=== PATIENT | female | born 1935 | race Two or more races ===

== ENCOUNTER 2018-08-31 12:06 | Inpatient (IN) | payer OTHER ==
[~2018-08-31] VITALS: Ht 152.4 cm; Wt 106.1 kg
[2018-08-31] MEDS ORDERED: TENORMIN25 MG (13:17)
[2018-08-31] MEDS ORDERED: NORVASC2.5 MG (13:17)
== END 2018-09-04 17:46 | disposition designated cancer center or children's hospital (05) | DRG 470 ==
LOC: ER 12:06 → SEC-K 17:39 → O/R 17:39 → SURG 09-01 18:40
PROC: 0SRR01Z Replacement of Right Hip Joint, Femoral Surface with Metal Synthetic Substitute, Open Approach (ICD-10-PCS; principal; 2018-08-31)
PROC: 0QR40JZ Replacement of Right Acetabulum with Synthetic Substitute, Open Approach (ICD-10-PCS; 2018-08-31)
PROC: 0MTL0ZZ Resection of Right Hip Bursa and Ligament, Open Approach (ICD-10-PCS; 2018-08-31)
PROC: 0LX Tendons, Transfer (ICD-10-PCS; 2018-08-31)
PROC: 4A033R1 Measurement of Arterial Saturation, Peripheral, Percutaneous Approach (ICD-10-PCS; 2018-08-31)
PROC: BB24ZZZ Computerized Tomography (CT Scan) of Bilateral Lungs (ICD-10-PCS; 2018-09-01)
PROC: BB24Y0Z Computerized Tomography (CT Scan) of Bilateral Lungs using Other Contrast, Unenhanced and Enhanced (ICD-10-PCS; 2018-09-01)
PROC: 3E0F7GC Introduction of Other Therapeutic Substance into Respiratory Tract, Via Natural or Artificial Opening (ICD-10-PCS; 2018-09-01)
DX: S72.091A Other fracture of head and neck of right femur, initial encounter for closed fracture (principal); J95.89 Other postprocedural complications and disorders of respiratory system, not elsewhere classified; J98.11 Atelectasis; R09.02 Hypoxemia; W18.09XA Striking against other object with subsequent fall, initial encounter; Y93.89 Activity, other specified; Y92.092 Bedroom in other non-institutional residence as the place of occurrence of the external cause; Y99.8 Other external cause status

== ENCOUNTER 2018-11-01 09:36 | Outpatient (CLI) | payer OTHER ==
[~2018-11-01 09:36] MED LIST: NORVASC2.5 MG; TENORMIN25 MG
== END 2018-11-01 09:50 | disposition home or self-care (01) ==
LOC: LAB 09:36
DX: E55.9 Vitamin D deficiency, unspecified (principal); M85.89 Other specified disorders of bone density and structure, multiple sites; E88.89 Other specified metabolic disorders; M81.8 Other osteoporosis without current pathological fracture; E83.42 Hypomagnesemia; E56.1 Deficiency of vitamin K

== ENCOUNTER → 2018-11-06 | Outpatient (CLI) | payer OTHER | END | disposition home or self-care (01) | LOC: NUCLEAR 12:50 | DX: M81.0 Age-related osteoporosis without current pathological fracture (principal) ==

== ENCOUNTER 2018-12-19 07:53 | Outpatient (CLI) | payer OTHER | END 2018-12-19 07:56 | disposition home or self-care (01) | LOC: RAD 07:53 | DX: Z96.641 Presence of right artificial hip joint (principal) ==

== ENCOUNTER 2020-06-03 08:45 | Outpatient (CLI) | payer OTHER | END 2020-06-03 08:52 | disposition home or self-care (01) | LOC: RAD 08:45 | PROVIDERS: ATTEND Physical Medicine & Rehabilitation | DX: M25.551 Pain in right hip (principal); M25.552 Pain in left hip; M54.5 Low back pain ==

== ENCOUNTER 2020-12-29 18:59 | Inpatient (IN) | payer OTHER ==
[~2020-12-29] VITALS: Ht 149.9 cm; Wt 54.4 kg
[2020-12-29] MEDS ORDERED: DICLOFENAC SODI50 MG PO (19:10)
[2020-12-29] MEDS ORDERED: GABAPENTIN100 M2 PO (19:10)
[2020-12-29] MEDS ORDERED: LOSARTAN POTAS100 MG PO (19:10)
[2020-12-29] MEDS ORDERED: SERTRALINE HCL25 MG PO (19:10)
[2020-12-29] MEDS ORDERED: SIMVASTATIN40 MG PO (19:11)
[2020-12-29] MEDS ORDERED: ATENOLOL50 MG PO (19:11)
[2020-12-29] MEDS ORDERED: ST. JOSEPH ASPI81 M2 PO (19:11)
[2020-12-29] MEDS ORDERED: HYDROCHLOROTH12.5 MG PO (19:12)
[2021-01-17] MEDS ORDERED: TAMS0.4C PO (12:51)
[2021-01-17] MEDS ORDERED: ATENOLOL50 MG PO (12:51)
[2021-01-17] MEDS ORDERED: INTESTINEX680 M1 PO (12:51)
[2021-01-17] MEDS ORDERED: FLUCONAZOLE100 MG PO (12:51)
[2021-01-17] MEDS ORDERED: LOSARTAN POTAS100 MG PO (12:51)
== END 2021-01-17 20:42 | disposition home or self-care (01) | DRG 392 ==
LOC: ER 18:59 → SEC-K 12-30 12:52 → MEDI 12-30 12:52
PROVIDERS: Surgery; ADMIT Internal Medicine; ATTEND Internal Medicine
PROC: 02HV33Z Insertion of Infusion Device into Superior Vena Cava, Percutaneous Approach (ICD-10-PCS; 2021-01-01)
PROC: 0DJD8ZZ Inspection of Lower Intestinal Tract, Via Natural or Artificial Opening Endoscopic (ICD-10-PCS; principal; 2021-01-03 09:15)
DX: K57.32 Diverticulitis of large intestine without perforation or abscess without bleeding (principal); N39.0 Urinary tract infection, site not specified; J98.11 Atelectasis; R09.02 Hypoxemia; R33.8 Other retention of urine; D64.9 Anemia, unspecified; I10 Essential (primary) hypertension; E78.5 Hyperlipidemia, unspecified; Z20.822 Contact with and (suspected) exposure to COVID-19

== ENCOUNTER 2022-09-14 12:58 | Inpatient (IN) | payer OTHER ==
[~2022-09-14] VITALS: Ht 162.6 cm; Wt 72.6 kg
[~2022-09-14 12:58] MED LIST changes: +ATENOLOL50 MG PO; +DICLOFENAC SODI50 MG PO; +FLUCONAZOLE100 MG PO; +GABAPENTIN100 M2 PO; +HYDROCHLOROTH12.5 MG PO; +INTESTINEX680 M1 PO; +LOSARTAN POTAS100 MG PO; +SERTRALINE HCL25 MG PO; +SIMVASTATIN40 MG PO; +ST. JOSEPH ASPI81 M2 PO; +TAMS0.4C PO
--- NOTE | 2022-09-14 13:13 | NUR ---
PTE ALERTA,ESTABLE Y ORIENTADA.ESTA REFIERE QUE HOY EN LA MANANA COMENZO CON LA DIFICULTAD RESPIRATORIA
--- NOTE | 2022-09-14 14:51 | NUR ---
PTE ALERTA,ESTABLE Y ORIENTADA.SE EDUCA SOBRE EL TRATAMIENTO QUE RECIBIRA EN EL HOSPTIAL Y ESTA REFIERE ENTENDER
--- NOTE | 2022-09-14 15:14 | NUR ---
AL MOMENTO DE RECIBIR TURNO PACIENTE SE ENCUENTRA REALIZANDOSE UN CT DE [employer]. PACIENTE CON CANULA NASAL BAJANDO A 4L. AL MOMENTO CANALIZACION PATENTE Y ANDRE DE EDEMA. 0.9 NSS BAJANDO A 100ML/HR. PACIENTE PENDIENTE PARA REALIZARSE PLACA.
--- NOTE | 2022-09-14 18:49 | NUR ---
FEMINA DESORIENTADA CONECTADA A MONITOR CARDIACCO Y OXIMETRIA DE PULSO. IV FLUIDS 0.9% NSS @ A 100 ML/HR PATENTES LIBRES DE EDEMA, ERITEMA Y SIGNOS DE INFECCION. SE MANTIENE PTE BAJO OBSERVACION POR CAMBIOS SIGNIFICATIVOS.
== END 2022-09-22 07:07 | disposition expired ==
LOC: ER 12:58 → MEDI 20:06 → ICU-2 20:06 → SURH 09-16 13:01
PROVIDERS: ADMIT Internal Medicine; ATTEND Internal Medicine
PROC: 4A12X4Z Monitoring of Cardiac Electrical Activity, External Approach (ICD-10-PCS; principal; 2022-09-14)
PROC: 5A09457 Assistance with Respiratory Ventilation, 24-96 Consecutive Hours, Continuous Positive Airway Pressure (ICD-10-PCS; 2022-09-14)
PROC: 02HV33Z Insertion of Infusion Device into Superior Vena Cava, Percutaneous Approach (ICD-10-PCS; 2022-09-18)
DX: I24.9 Acute ischemic heart disease, unspecified (principal); I21.A1 Myocardial infarction type 2; A41.9 Sepsis, unspecified organism; J96.01 Acute respiratory failure with hypoxia; J69.0 Pneumonitis due to inhalation of food and vomit; R65.20 Severe sepsis without septic shock; S72.142A Displaced intertrochanteric fracture of left femur, initial encounter for closed fracture; N17.9 Acute kidney failure, unspecified; I48.92 Unspecified atrial flutter; N39.0 Urinary tract infection, site not specified; F05 Delirium due to known physiological condition; I46.2 Cardiac arrest due to underlying cardiac condition; I95.9 Hypotension, unspecified; F03.90 Unspecified dementia, unspecified severity, without behavioral disturbance, psychotic disturbance, mood disturbance, and anxiety; S00.83XA Contusion of other part of head, initial encounter; Z66 Do not resuscitate; I27.20 Pulmonary hypertension, unspecified; I11.9 Hypertensive heart disease without heart failure; L89.152 Pressure ulcer of sacral region, stage 2; L08.89 Other specified local infections of the skin and subcutaneous tissue